=== PATIENT | female | born 1990 | race Caucasian/White ===

== ENCOUNTER → 2016-03-10 | Outpatient (CLI) | payer BC, OTHER ==
[~2016-03-10] MED LIST: AMOX875T PO; BIOT1CHW PO; OXYC1TAB3 PO
== END | disposition home or self-care (01) ==
LOC: C.PATHSPEC 16:10
PROVIDERS: ATTEND Obstetrics & Gynecology
DX: N87.1 Moderate cervical dysplasia (principal)

== ENCOUNTER 2019-12-26 02:54 | Inpatient (IN) ==
[2019-12-26] MEDS ORDERED: OXYTOCIN 30 UNITS/500 ML BAG IV PRN ×3 (04:31→13:12)
[2019-12-26] MEDS ORDERED: SODIUM CHLORIDE 0.9% INJ 10 ML VIAL ONE (04:40)
[2019-12-26] MEDS ORDERED: ePHEDrine sulfate 50 MG/ML AMP ONE (04:40)
[2019-12-26] MEDS ORDERED: BUPIVACAINE 0.25% 30 ML VIAL ONE (04:40)
[2019-12-26] MEDS ORDERED: fentaNYL citrate 100 MCG/2 ML VIAL ONE (04:41)
[2019-12-26] MEDS ORDERED: fentaNYL 2MCG/ML ROPIVACAINE 1.25MG/ML 100 ML BAG EPI ONE (04:41)
[2019-12-26] MEDS: LACTATED RINGER'S 1,000 ML IV PRN ×3 (04:50→07:06)
[2019-12-26 05:42] LABS: Hemoglobin 12.2 g/dL (12.0-16.0); Mean Corpuscular Hemoglobin 29.1 pg (25-34); Mean Corpuscular Volume 88.3 fL (80-100); Mean Platelet Volume 12.7 fL (7.4-10.4); Platelet Count 124 K/uL (130-400); RDW Coefficient of Variation 13.1 % (11.5-14.5); RDW Standard Deviation 41.7 fL (36.4-46.3); Red Blood Count 4.19 M/uL (4.2-5.4); White Blood Count 11.51 K/uL (4.8-10.8)
--- NOTE | 2019-12-26 05:58 | Anesthesiology Consultation ---
Date of Service December 26, 2019 Assessment & Plan (1) Encounter for pre-operative examination: Chart Review Chart Review: Patient NOT seen in Pre Admission Testing and Acceptable Risk for Labor Epidural Consults Requested none ASA ASA2 Proposed Anesthesia Anesthesia Type: Labor Epidural Risk / Benefits Reviewed With: PT / POA / Parent / Guardian, Accepts Plan and Informed Consent Obtained History Height/Weight Height: 5 ft 5 in Weight: 80.739 kg Allergies Allergy/AdvReac Type Severity Reaction Status Date / Time No Known Allergies Allergy Verified 12/20/19 10:31 Medications Home Medications Medication Instructions Recorded Confirmed Last Taken prenat.vits,tobi,[id number] 1 tab PO DAILY 05/11/19 12/26/19 12/25/19 07:00 Active Medications Generic Name Dose Route Start Last Admin Trade Name Freq PRN Reason Stop Dose Admin Lactated Ringer's 1,000 mls @ 125 mls/hr 12/26/19 04:31 12/26/19 05:50 Lr IV 12/28/19 04:30 999 mls/hr .Q8H PRN Administration L&D Protocol Protocol NPO Date Last Intake of Fluids: 12/26/19 Time Last Intake of Fluids: 06:18 Date Last Intake of Solids: 12/25/19 Time Last Intake of Solids: 17:30 Past Medical History Medical History History of chicken pox History of delivery, currently Supervision of high risk , antepartum 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 Patient denies history of abnormal bleeding or bleeding disorder. Patient denies active use of anticoagulants other than low dose aspirin. Patient denies numbness, tingling or weakness in lower extremities. Physical Exam Vital Signs Last Vital Signs Temp 37.0 C 12/26/19 03:07 Pulse 66 12/26/19 05:54 Resp 16 12/26/19 03:07 BP 115/72 12/26/19 05:45 Pulse Ox 98 12/26/19 05:54 Constitutional not obese (gravid uterus) ENMT Mouth: no TMJ abnormality and oral opening not small Thyromental Distance: > or= 3.5 Finger Breadths Mallampati Class: III Neck normal visual inspection; neck extension not limited Respiratory normal respiratory effort Auscultation: lungs clear to auscultation bilaterally Cardiovascular Rate/Rhythm: regular rate and regular rhythm Heart Sounds: no murmur Neurologic moves all extremities Motor/Sensory: no sensory deficit Psychiatric Orientation: alert and oriented x 3 Testing Laboratory Results 12/26/19 04:52
[2019-12-26] MEDS ORDERED: NALOXONE HCL 0.4 MG/1 ML VIAL/CARP IV PRN (06:22)
[2019-12-26] MEDS ORDERED: ePHEDrine sulfate 50 MG/ML AMP IV PRN (06:22)
[2019-12-26] MEDS ORDERED: ONDANSETRON INJ 2 MG/ML 2 ML VIAL IV PRN (06:22)
[2019-12-26] MEDS ORDERED: NALOXONE HCL 1 MG in SODIUM CHLORIDE 0.9% 1000ML 1,000 ML IV PRN (06:22)
[2019-12-26] MEDS ORDERED: diphenhydrAMINE 50 MG/ML VIAL IV PRN (06:22)
[2019-12-26] MEDS ORDERED: fentaNYL 2MCG/ML ROPIVACAINE 1.25MG/ML 100 ML BAG EPI PRN (06:22)
--- NOTE | 2019-12-26 06:42 | History & Physical Report ---
Date of Service December 26, 2019 Assessment & Plan (1) Supervision of high risk , antepartum: - heart rate tracing category 2 with accelerations and variability -Patient with spontaneous rupture of membranes at 05 100 for clear fluid -Patient received epidural for pain control -Anticipate vaginal delivery Admission and Anticipated Discharge Date Admission Date: December 26, 2019 History of Present Illness Chief Complaint: Contractions Primary Care Provider: NO PCP The patient is a 29-year-old 2 para 0-1-0-1, EDC of 31 December, at 39+ weeks gestational age who presents to labor and delivery in active labor. Patient states the contractions began in earnest on 24 December and increased in intensity. She denied rupture of membranes or vaginal bleeding. The patient's first delivery was a 36-week delivery 11 years ago. The patient was a late presenter and gestational age was in question. The patient was felt to be 36 weeks at the time of delivery. Because of this the patient had been counseled about the use of progesterone during this and the patient declined. 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 She has been followed by protocol with growth scans which have been reassuring as well as NSTs. She had a echocardiogram which was within normal limits. Patient declined genetic testing for the . Laboratory values for the show blood type of B+, antibody negative, rubella immune, hepatitis B negative, normal 1 hour Glucola x2, and a negative third trimester beta strep culture. The patient had a negative Covid screen. 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 Family History Aunt Breast cancer Other Diabetes Social History Smoking Status: Current every day smoker Cigarettes Per Day: 6; Second Hand Exposure: Yes; Do You Dip or Chew Tobacco: No; Hx Alcohol Use: No Hx Substance Use: No Preferred Language: Azeri Communication Ability: Effective Harness Rigger Required: No Beliefs That Will Affect Care: None marital status: marital status details: Markel Jose (28) [phone] Current Living Situation: Family Current Living Situation Comment: Lives with , 10 year old son, and 2 cats current occupational status: employed current occupation: [employer] Other Information That Helps Us Care for You: No Feels Safe at Home: Yes Safety Concerns: Feels Safe At This Time Assistive Devices: None Physical Exam Constitutional: WD/WN, vitals as above Respiratory: Auscultation: lungs clear to auscultation bilaterally Cardiovascular: RRR, no murmur, no edema Extremities: no calf tenderness Gastrointestinal (Abdomen): Gravid, vertex, positive heart tones, greg mated weight of 6-1/2 pounds Genitourinary: Cervix: 4/100/-2 Results & Data ([facility]) Vital Signs (Past 12 Hours) Vital Signs Temp Pulse Resp BP Pulse Ox 12/26/19 06:39 71 102/64 96 12/26/19 06:37 68 100/60 12/26/19 06:35 67 94/53 L 12/26/19 06:34 66 96 12/26/19 06:31 68 104/55 L 12/26/19 06:29 74 96/54 L 96 12/26/19 06:27 70 96/57 L 12/26/19 06:25 73 91/55 L 12/26/19 06:24 75 96 12/26/19 06:23 77 101/57 L 12/26/19 06:21 68 95/51 L 12/26/19 06:19 76 102/53 L 96 12/26/19 06:17 69 95/55 L 12/26/19 06:15 81 107/56 L 12/26/19 06:14 88 97 12/26/19 06:13 72 102/55 L 12/26/19 06:11 78 111/64 12/26/19 06:09 87 98 12/26/19 06:05 84 88 L 12/26/19 06:04 84 98 12/26/19 06:01 83 118/68 12/26/19 05:59 78 99 12/26/19 05:58 92 H 92 12/26/19 05:54 66 98 12/26/19 05:49 73 99 12/26/19 05:45 61 115/72 12/26/19 05:44 71 98 12/26/19 04:28 71 110/60 12/26/19 03:07 98.6 F 83 16 118/72 Coding Level of Care Code None Diagnoses Supervision of high risk , antepartum O09.90
--- NOTE | 2019-12-26 07:59 | Labor Progress Brief Note ---
Date of Service December 26, 2019 Subjective Comfortable with epidural Assessment & Plan (1) : VSS Fetus cat 1 Labor - laboring spontaneously, plan to recheck in few hours and augment with pit PRN GBS neg Epidural in place Admission and Anticipated Discharge Date Admission Date: December 26, 2019 Physical Exam Constitutional: WD/WN, vitals as above no acute distress Genitourinary: OB Exam Abdomen: + regular contractions (q5) OB Exam Monitor Tracing: + external FHT monitor used, + external uterine monitor used and + category I (125/mod/+accel/early decels) Results & Data ([facility]) Vital Signs (Past 12 Hours) Vital Signs Temp Pulse Resp BP Pulse Ox 12/26/19 07:54 61 96 12/26/19 07:52 55 L 96/51 L 12/26/19 07:49 64 95 12/26/19 07:44 63 96 12/26/19 07:39 67 96 12/26/19 07:38 63 99/56 L 12/26/19 07:34 75 96 12/26/19 07:29 61 95 12/26/19 07:24 64 95 12/26/19 07:22 66 97/52 L 12/26/19 07:19 67 95 12/26/19 07:14 66 96 12/26/19 07:09 67 96 12/26/19 07:07 68 97/52 L 92 12/26/19 07:05 69 101/54 L 12/26/19 07:04 70 96 12/26/19 07:01 97.7 F 73 20 107/58 L 12/26/19 06:59 75 103/57 L 96 12/26/19 06:57 69 107/56 L 12/26/19 06:55 68 107/56 L 12/26/19 06:54 66 96 12/26/19 06:53 66 102/55 L 12/26/19 06:51 80 96/60 L 12/26/19 06:49 69 105/55 L 97 12/26/19 06:47 64 103/51 L 12/26/19 06:45 68 110/57 L 12/26/19 06:44 72 96 12/26/19 06:43 72 99/54 L 12/26/19 06:42 67 103/59 L 12/26/19 06:41 68 106/64 12/26/19 06:39 71 102/64 96 12/26/19 06:37 68 100/60 12/26/19 06:35 67 94/53 L 12/26/19 06:34 66 96 12/26/19 06:31 68 104/55 L 12/26/19 06:29 74 96/54 L 96 12/26/19 06:27 70 96/57 L 12/26/19 06:25 73 91/55 L 12/26/19 06:24 75 96 12/26/19 06:23 77 101/57 L 12/26/19 06:21 68 95/51 L 12/26/19 06:19 76 102/53 L 96 12/26/19 06:17 69 95/55 L 12/26/19 06:15 81 107/56 L 12/26/19 06:14 88 97 12/26/19 06:13 72 102/55 L 12/26/19 06:11 78 111/64 12/26/19 06:09 87 98 12/26/19 06:05 84 88 L 12/26/19 06:04 84 98 12/26/19 06:01 83 118/68 12/26/19 05:59 78 99 12/26/19 05:58 92 H 92 12/26/19 05:54 66 98 12/26/19 05:49 73 99 12/26/19 05:45 61 115/72 12/26/19 05:44 71 98 12/26/19 04:28 71 110/60 12/26/19 03:07 98.6 F 83 16 118/72 Coding Level of Care Code None Diagnoses Z34.90
--- NOTE | 2019-12-26 08:35 | Labor Progress Brief Note ---
Date of Service December 26, 2019 Subjective Comfortable with epidural Assessment & Plan (1) : VSS Fetus cat 1 Labor - laboring spontaneously, continuing to progress. Will augment as needed GBS neg Epidural in place Admission and Anticipated Discharge Date Admission Date: December 26, 2019 Physical Exam Constitutional: WD/WN, vitals as above no acute distress Genitourinary: OB Exam Abdomen: + regular contractions (q5) Manual OB Exam: + cervical dilation 5 cm, + cervical effacement 90% and + station -2 OB Exam Monitor Tracing: + external FHT monitor used, + external uterine monitor used and + category I (135/mod/+accel/early and variable decels) Results & Data ([facility]) Vital Signs (Past 12 Hours) Vital Signs Temp Pulse Resp BP Pulse Ox 12/26/19 08:29 71 98 12/26/19 08:24 61 96 12/26/19 08:22 76 94/51 L 12/26/19 08:19 64 96 12/26/19 08:14 61 95 12/26/19 08:09 60 97/52 L 96 12/26/19 08:06 65 94 12/26/19 08:04 60 95 12/26/19 07:59 60 95 12/26/19 07:54 61 96 12/26/19 07:52 55 L 96/51 L 12/26/19 07:49 64 95 12/26/19 07:44 63 96 12/26/19 07:39 67 96 12/26/19 07:38 63 99/56 L 12/26/19 07:34 75 96 12/26/19 07:29 61 95 12/26/19 07:24 64 95 12/26/19 07:22 66 97/52 L 12/26/19 07:19 67 95 12/26/19 07:14 66 96 12/26/19 07:09 67 96 12/26/19 07:07 68 97/52 L 92 12/26/19 07:05 69 101/54 L 12/26/19 07:04 70 96 12/26/19 07:01 97.7 F 73 20 107/58 L 12/26/19 06:59 75 103/57 L 96 12/26/19 06:57 69 107/56 L 12/26/19 06:55 68 107/56 L 12/26/19 06:54 66 96 12/26/19 06:53 66 102/55 L 12/26/19 06:51 80 96/60 L 12/26/19 06:49 69 105/55 L 97 12/26/19 06:47 64 103/51 L 12/26/19 06:45 68 110/57 L 12/26/19 06:44 72 96 12/26/19 06:43 72 99/54 L 12/26/19 06:42 67 103/59 L 12/26/19 06:41 68 106/64 12/26/19 06:39 71 102/64 96 12/26/19 06:37 68 100/60 12/26/19 06:35 67 94/53 L 12/26/19 06:34 66 96 12/26/19 06:31 68 104/55 L 12/26/19 06:29 74 96/54 L 96 12/26/19 06:27 70 96/57 L 12/26/19 06:25 73 91/55 L 12/26/19 06:24 75 96 12/26/19 06:23 77 101/57 L 12/26/19 06:21 68 95/51 L 12/26/19 06:19 76 102/53 L 96 12/26/19 06:17 69 95/55 L 12/26/19 06:15 81 107/56 L 12/26/19 06:14 88 97 12/26/19 06:13 72 102/55 L 12/26/19 06:11 78 111/64 12/26/19 06:09 87 98 12/26/19 06:05 84 88 L 12/26/19 06:04 84 98 12/26/19 06:01 83 118/68 12/26/19 05:59 78 99 12/26/19 05:58 92 H 92 12/26/19 05:54 66 98 12/26/19 05:49 73 99 12/26/19 05:45 61 115/72 12/26/19 05:44 71 98 12/26/19 04:28 71 110/60 12/26/19 03:07 98.6 F 83 16 118/72 Coding Level of Care Code None Diagnoses Z34.90
--- NOTE | 2019-12-26 11:06 | Labor Progress Brief Note ---
Date of Service December 26, 2019 Subjective Comfortable with epidural Assessment & Plan (1) : VSS Fetus cat 1 Labor - Will labor down and begin pushing after 30-60min GBS neg Epidural in place Admission and Anticipated Discharge Date Admission Date: December 26, 2019 Physical Exam Constitutional: WD/WN, vitals as above no acute distress Genitourinary: OB Exam Abdomen: + regular contractions (q5) Manual OB Exam: + cervical dilation 10 cm, + cervical effacement 100% and + station 0 OB Exam Monitor Tracing: + external FHT monitor used, + external uterine monitor used and + category II (135/mod/+accel/+early and variable decels) Results & Data ([facility]) Vital Signs (Past 12 Hours) Vital Signs Temp Pulse Resp BP Pulse Ox 12/26/19 10:59 72 98 12/26/19 10:54 76 98 12/26/19 10:53 75 105/60 12/26/19 10:49 64 103/58 L 97 12/26/19 10:44 74 98 12/26/19 10:39 67 98 12/26/19 10:38 61 107/63 12/26/19 10:34 66 98 12/26/19 10:29 70 99 12/26/19 10:24 61 95 12/26/19 10:22 66 107/65 12/26/19 10:19 58 L 98 12/26/19 10:14 84 83 L 12/26/19 10:09 63 97 12/26/19 10:07 72 104/61 12/26/19 10:04 65 98 12/26/19 09:59 64 97 12/26/19 09:54 66 97 12/26/19 09:53 64 103/60 12/26/19 09:49 63 97 12/26/19 09:44 61 97 12/26/19 09:39 65 97 12/26/19 09:38 63 106/55 L 12/26/19 09:34 59 L 97 12/26/19 09:29 59 L 97 12/26/19 09:24 65 97 12/26/19 09:23 60 108/58 L 12/26/19 09:19 66 96 12/26/19 09:14 63 98 12/26/19 09:09 70 98 12/26/19 09:07 65 111/56 L 12/26/19 09:04 62 98 12/26/19 08:59 62 97 12/26/19 08:54 65 111/58 L 97 12/26/19 08:49 68 98 12/26/19 08:44 68 98 12/26/19 08:39 67 97 12/26/19 08:37 75 92/52 L 12/26/19 08:34 71 97 12/26/19 08:29 71 98 12/26/19 08:24 61 96 12/26/19 08:22 76 94/51 L 12/26/19 08:19 64 96 12/26/19 08:14 61 95 12/26/19 08:09 60 97/52 L 96 12/26/19 08:06 65 94 12/26/19 08:04 60 95 12/26/19 07:59 60 95 12/26/19 07:54 61 96 12/26/19 07:52 55 L 96/51 L 12/26/19 07:49 64 95 12/26/19 07:44 63 96 12/26/19 07:39 67 96 12/26/19 07:38 63 99/56 L 12/26/19 07:34 75 96 12/26/19 07:29 61 95 12/26/19 07:24 64 95 12/26/19 07:22 66 97/52 L 12/26/19 07:19 67 95 12/26/19 07:14 66 96 12/26/19 07:09 67 96 12/26/19 07:07 68 97/52 L 92 12/26/19 07:05 69 101/54 L 12/26/19 07:04 70 96 12/26/19 07:01 97.7 F 73 20 107/58 L 12/26/19 06:59 75 103/57 L 96 12/26/19 06:57 69 107/56 L 12/26/19 06:55 68 107/56 L 12/26/19 06:54 66 96 12/26/19 06:53 66 102/55 L 12/26/19 06:51 80 96/60 L 12/26/19 06:49 69 105/55 L 97 12/26/19 06:47 64 103/51 L 12/26/19 06:45 68 110/57 L 12/26/19 06:44 72 96 12/26/19 06:43 72 99/54 L 12/26/19 06:42 67 103/59 L 12/26/19 06:41 68 106/64 12/26/19 06:39 71 102/64 96 12/26/19 06:37 68 100/60 12/26/19 06:35 67 94/53 L 12/26/19 06:34 66 96 12/26/19 06:31 68 104/55 L 12/26/19 06:29 74 96/54 L 96 12/26/19 06:27 70 96/57 L 12/26/19 06:25 73 91/55 L 12/26/19 06:24 75 96 12/26/19 06:23 77 101/57 L 12/26/19 06:21 68 95/51 L 12/26/19 06:19 76 102/53 L 96 12/26/19 06:17 69 95/55 L 12/26/19 06:15 81 107/56 L 12/26/19 06:14 88 97 12/26/19 06:13 72 102/55 L 12/26/19 06:11 78 111/64 12/26/19 06:09 87 98 12/26/19 06:05 84 88 L 12/26/19 06:04 84 98 12/26/19 06:01 83 118/68 12/26/19 05:59 78 99 12/26/19 05:58 92 H 92 12/26/19 05:54 66 98 12/26/19 05:49 73 99 12/26/19 05:45 61 115/72 12/26/19 05:44 71 98 12/26/19 04:28 71 110/60 12/26/19 03:07 98.6 F 83 16 118/72 Coding Level of Care Code None Diagnoses Z34.90
[2019-12-26] MEDS ORDERED: BENZOCAINE 20% AER SPR 82.5 GM CAN EXT PRN (13:12)
[2019-12-26] MEDS ORDERED: HYDROCORTISONE ACETATE 25 MG SUPP PR PRN (13:12)
[2019-12-26] MEDS ORDERED: SUPERCREAM 0.870% 15 GM JAR EXT PRN (13:12)
[2019-12-26] MEDS ORDERED: ACETAMINOPHEN 325 MG TAB PO PRN (13:12)
[2019-12-26] MEDS ORDERED: bisacodyL 10 MG SUPP PR PRN (13:12)
[2019-12-26] MEDS ORDERED: DIPHTHERIA/TETANUS/PERTUSSIS 0.5 ML SYR/VIAL IM ONE (13:12)
[2019-12-26] MEDS ORDERED: LACTATED RINGER'S 1,000 ML IV SCH (13:15)
--- NOTE | 2019-12-26 13:16 | Delivery Summary ---
Vaginal Delivery Summary Date of Service December 26, 2019 Vaginal Delivery Summary PREOPERATIVE DIAGNOSIS: 1. Single intrauterine at 39 1/7 wga 2. spontaneous rupture of membranes 3. labor 4. 2 vessel cord 5. History of PTD POSTOPERATIVE DIAGNOSIS: 1. Single intrauterine at 39 1/7 wga 2. spontaneous rupture of membranes 3. labor 4. 2 vessel cord 5. History of PTD 6. Delivered. PROCEDURE: Normal spontaneous vaginal delivery. SURGEON: Triny Elliott MD ANESTHESIA: Epidural. ESTIMATED BLOOD LOSS: 300 mL FLUIDS: Continuous LR. URINE OUTPUT: None. COMPLICATIONS: None. CONDITION: Stable. INDICATIONS: 29 y/o at 39 1/7 wga presented early this morning with c/o leaking of fluid and contractions. She was found to be spontaneously ruptured and laboring. She received an epidural for pain control. She then progressed to complete, complete +2. FINDINGS: A viable female with Apgars of 8 and 9 at 1 and 5 minutes respectively, weight pending. SPECIMEN: Placenta. OPERATIVE REPORT: The patient progressed to 10 cm, 100% effaced and +2 station, pushed over intact perineum with anesthesia to deliver a viable female infant, weight and Apgars as above. Oxytocin was started with pushing due to decreased contraction frequency. Head of delivered in DOMINGUEZ position. Nuchal cord x 1 and body cord were present. Body and shoulders were delivered without difficulty. was delivered to maternal abdomen and nursing staff. Cord was clamped and cut. Cord blood was obtained. Placenta delivered spontaneously intact with 3-vessel cord. IV oxytocin and fundal massage were given for excellent hemostasis. Vagina, cervix, placenta and perineum were inspected. A left labial laceration was noted and repaired using 4-0 vicryl on an SH needle. Sponge and needle counts correct x2. No sponges were left behind. Mother and stable in immediate period. [facility] Vaginal Delivery Charge Vaginal Delivery Codes: 24060 global code for the antepartum, delivery, and post-
--- NOTE | 2019-12-26 13:36 | Anesthesia Procedure Note ---
Date of Service December 26, 2019 Anesthesia Post Epidural Note Vital Signs Vital Signs: Temp Pulse Resp BP Pulse Ox 36.5 C 81 20 121/56 L 99 12/26/19 07:01 12/26/19 13:23 12/26/19 13:09 12/26/19 13:23 12/26/19 12:44 Pain Intensity Right Lower Abdomen: Pain Intensity: 0 Notes Mental Status: alert / awake / arousable and participated in evaluation Patient Amnestic to Procedure: No Nausea / Vomiting: adequately controlled Pain: adequately controlled Airway Patency, RR, SpO2: stable & adequate BP & HR: stable & adequate Hydration State: stable & adequate Neuraxial Anesthesia: was administered and sensory block is resolving Anesthetic Complications: no major complications apparent and Pt Satisfied with anesthetic care Epidural: Removed without complications and With tip intact
[2019-12-26] MEDS: IBUPROFEN 600 MG TAB PO PRN (17:37)
[2019-12-26] MEDS: DOCUSATE SODIUM 100 MG CAP PO SCH (20:33)
[2019-12-27 04:44] VITALS: TEMP 98.1
--- NOTE | 2019-12-27 06:42 | Obstetrical Progress Note ---
Date of Service <Gema Wright DO - Last Filed: 12/27/19 06:54> December 27, 2019 Assessment & Plan <Gema Wright DO - Last Filed: 12/27/19 06:54> (1) state: - PNL: Rh pos, RI, GBS neg, COVID neg - Feels well today. Eating well, voiding well, ambulating well. - Patient with complaint of slight headache at this time. BP is well controlled and is at baseline; most recent BP 97/61; no other neurological sxs at this t nolberto. Recommended Motrin or Tylenol as noted below. Will continue to monitor subjective complaint of headache. - Discussed analgesics for pain control and recommended ibuprofen 600mg Q4H PRN or Tylenol 650mg Q6H prn. Pt acknowledges and agrees to plan. - Patient plans to bottle feed. Discussed breast care after delivery including wearing a tight bra to prevent influx of milk. - Routine care -- continue OOB, ambulation, and full diet as tolerated - After discharge will have 6 week follow-up with Dr. Elliott. Subjective <Gema Wright DO - Last Filed: 12/27/19 06:54> Anel Baez is a 29 y/o female who is PPD #1 following spontaneous vaginal delivery at 39 and 1/7 weeks. She reports feeling well overall this morning. Minimal abdominal cramping; this pain is only with moving around, and at that time it is rated at a 4/10. She reports only taking one dose of Motrin since delivery last night. Voiding without dysuria. Tolerating meals overnight without difficulty, nausea, or vomiting. Patient has been able to ambulate some. Has persistent lochia with some improvement this morning. Currently bottle feeding. Patient does complain of a slight headache that started about 2.5 hours ago. She notes that she does sometimes get headaches and this current headache is similar to her history. Patient attributes the headache to being tired and not wearing her glasses overnight. She denies dizziness, lightheadedness, or changes in her vision with the current headache. Review of Systems Denies fever or chills. Denies shortness of breath or cough. Denies chest pain. Denies breast pain. Denies dysuria. Denies leg pain or leg swelling. + headache. Denies lightheadedness, dizziness, or changes in vision. Physical Exam <Gema Wright DO - Last Filed: 12/27/19 06:54> General: Alert, oriented. No acute distress. Cardiac: Regular rate and rhythm. No murmurs. Respiratory: Clear to auscultation bilaterally a/p, no wheezes/rales/rhonchi. No increased work of breathing. Symmetrical chest rise. No respiratory distress. Abdomen: Soft, nontender, nondistended. Bowel sounds present. Uterus: Uterine fundus firm, palpable at umbilicus on left. Lower Extremities: No lower extremity edema or swelling. No deep calf pain. Evin's negative bilaterally. Results & Data ([facility]) <Gmea Wright DO - Last Filed: 12/27/19 06:54> Vital Signs (Past 12 Hours) Vital Signs Temp Pulse Resp BP 12/27/19 04:30 36.7 C 72 18 97/61 L 12/27/19 00:15 36.6 C 70 18 95/56 L 12/26/19 20:30 36.7 C 67 18 103/65 <Triny Elliott MD - Last Filed: 12/27/19 07:15> Co-Signing Physician Notes Resident Physician Supervision Note: I interviewed and examined the patient. Discussed with Dr. Wright and agree with findings and plan as documented in the note. Any exceptions or clarifications are listed here: 29 y/o PP1 s/p . Meeting all milestones. Notes mild SHIELDS as above. VSS, exam nl. Fundus firm at umbilicus and NT. Desires d/c home later today. Discussed would be stable for d/c later this afternoon as long as making sure SHIELDS improves, ensuring pp milestones are stable, and peds ok. Pt verbalized understanding Documented By: Triny Elliott MD Resident Activity Tracking <Gema Wright DO - Last Filed: 12/27/19 06:54> Resident Involvement: Resident Care Provided Care Provided: OB Delivery
[2019-12-27] MEDS: DOCUSATE SODIUM 100 MG CAP PO SCH (07:34)
[2019-12-27] MEDS ORDERED: FERROUS SULFATE 325 MG TAB PO SCH (08:00)
[2019-12-27] MEDS ORDERED: PRENATAL VITAMIN 1 TAB PO SCH (08:00)
[2019-12-27 09:52] VITALS: BP 102/62; PULSE 73; O2SAT 96
[2019-12-27] MEDS: IBUPROFEN 600 MG TAB PO PRN (10:30)
[2019-12-27] MEDS ORDERED: bisacodyL 5 MG TABEC PO SCH (20:00)
== END 2019-12-27 15:00 | disposition home or self-care (01) | DRG 807 ==
LOC: OPB 02:54 → 4S1 02:57 → 4S2 16:01